=== PATIENT | male | born 1995 | race Two or more races ===

== ENCOUNTER 2019-04-13 05:47 | Day surgery (SDC) | payer OTHER | END 2019-04-13 12:55 | disposition home or self-care (01) | LOC: CIR.AMB 05:47 | DX: N62 Hypertrophy of breast (principal) ==

== ENCOUNTER 2023-02-15 07:00 | Day surgery (SDC) | payer OTHER ==
[2023-02-11 09:34] LABS: HEMATOCRIT 41.5 % (39.0-48.0); MEAN CELL VOLUME 82.4 fL (80.0-100.00); MEAN CORPUSCULAR HEMOGLOBIN 27.7 pg (27.00-32.0); MEAN CORPUSCULAR HGB CONC 33.6 g/dl (32.0-36.0); PLATELET COUNT 214 K/uL (150-450); RED BLOOD COUNT 5.04 M/uL (4.00-6.00); RED CELL DISTRIBUTION WIDTH 14.5 % (11.5-14.5)
[2023-02-11 10:00] LABS: INR 1.01; PARTIAL THROMBOPLASTIN TIME 25.6 SECONDS (22.0-34.0); PROTHROMBIN TIME 10.6 SECONDS (9.0-11.5)
[2023-02-11 10:03] LABS: PH,URINE 6.5 (5.0-8.0); URINE APPEARANCE Clear; URINE BILIRRUBIN Negative (NEGATIVE); URINE BLOOD Negative; URINE COLOR Yellow; URINE GLUCOSE Negative (NEGATIVE); URINE LEUKOCYTE Negative; URINE NITRATE Negative; URINE PROTEIN Negative (NEGATIVE); URINE UROBILINOGEN 0.2 E.U./dl
[2023-02-11 10:07] LABS: BILIRUBIN TOTAL 0.6 mg/dL (0.3-1.2); CALCIUM 9.5 mg/dL (8.5-10.1); CREATININE SERUM 1.17 mg/dL (0.70-1.30); GFR 73.7; GLOBULINA 3.2 G/DL (2.4-3.5); POTASSIUM 5.27 mEq/L (3.5-5.1); TOTAL PROTEIN 7.2 gm/dL (6.4-8.2)
[2023-02-11 10:09] LABS: URINE RBC 2.1 uL (0.0-20.8)
[2023-02-11 10:21] LABS: URINE BACTERIA 3.7 uL (0.0-1933); URINE EPITHELIAL CELLS 0.1 uL (0.0-38.8); URINE WBC 1.2 uL (0.0-23.2)
[~2023-02-15 07:00] MED LIST: LEXAPRO 10MG
== END 2023-02-15 14:20 | disposition home or self-care (01) ==
LOC: CIR.AMB 07:00
PROVIDERS: ATTEND Specialist
DX: N62 Hypertrophy of breast (principal); Z20.822 Contact with and (suspected) exposure to COVID-19

== ENCOUNTER 2024-12-01 14:50 | Emergency (ER) | payer OTHER ==
[~2024-12-01] VITALS: Ht 177.8 cm; Wt 70.3 kg
[2024-12-01] MEDS ORDERED: WELLBUTRIN SR150 MG PO (15:54)
[2024-12-01] MEDS ORDERED: VYVANSE40 MG (15:54)
[2024-12-01] MEDS ORDERED: ELVITEG/COB/EMTRI/TENOFO DISOP 1 UDTAB TABLET PO STA (16:32)
[2024-12-01] MEDS ORDERED: ELVITEG/COB/EMTRI/TENOFO DISOP 1 UDTAB TABLET PO ONE (16:51)
== END 2024-12-01 17:46 | disposition home or self-care (01) ==
LOC: ER 14:50
DX: S61.230A Puncture wound without foreign body of right index finger without damage to nail, initial encounter (principal); W46.1XXA Contact with contaminated hypodermic needle, initial encounter; Y93.89 Activity, other specified; Y92.238 Other place in hospital as the place of occurrence of the external cause; Y99.9 Unspecified external cause status